=== PATIENT | female | born 2005 | race Caucasian/White ===

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

== ENCOUNTER 2024-06-01 18:30 | Emergency (ER) | payer BC, MEDICAID ==
[~2024-06-01] VITALS: Ht 172.7 cm; Wt 63.0 kg
[2024-06-01 19:06] VITALS: BP 136/75; PULSE 107; RESP 18; TEMP 97.9; O2SAT 95
[2024-06-01 19:45] LABS: Basophils # (auto) 0.1 10 ^3/uL (0-0.2); Eosinophils # (auto) 0.1 10 ^3/uL (0-0.8); Eosinophils % (auto) 1.6 % (0.0-7.0); Hemoglobin 14.7 g/dL (12.2-16.2); Lymphocytes # (auto) 2.2 10 ^3/uL (0.4-5.4); Lymphocytes % (auto) 28.3 % (10.0-50.0); Mean Corpuscular Hemoglobin 34.7 pg (28.0-32.0); Mean Corpuscular Hgb Conc. 35.1 g/dL (32.0-36.0); Mean Corpuscular Volume 98.9 fL (80.0-100.0); Monocytes # (auto) 0.6 10 ^3/uL (0-1.3); Monocytes % (auto) 7.7 % (0.0-12.0); Neutrophils # (auto) 4.8 10 ^3/uL (1.6-8.6); Neutrophils % (auto) 61.4 % (37.0-80.0); Nucleated Red Blood Cells % 0.1 %; Platelet Count (auto) 167 10^3/uL (140-450); Red Blood Cells 4.25 10^6/uL (4.0-5.20); Red Cell Distribution Width 15.1 % (11.8-14.3); White Blood Cell 7.8 10^3/uL (4.4-10.8)
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
[2024-06-01 20:09] LABS: INR 0.93 (0.9-1.15); Partial Thromboplastin Time 25.4 SEC (24.5-34.5); Prothrombin Time 9.9 sec (9.3-11.8)
[2024-06-01 20:11] LABS: Urine Bacteria None Seen /hpf (None Seen)
[2024-06-01 20:17] LABS: Anion Gap 10 (5-15); BUN/Creatinine Ratio 14.3 (10.0-20.0); Bilirubin, Total 0.4 mg/dL (0.2-1.0); Blood Urea Nitrogen 12 mg/dL (9-23); Calcium 9.5 mg/dL (8.7-10.4); Carbon Dioxide 26 mmol/L (20-31); Glucose 101 mg/dL (74-106); Potassium 4.2 mmol/L (3.5-5.1); Sodium 144 mmol/L (136-145); Total Protein 7.7 g/dL (5.7-8.2)
[2024-06-01 20:18] LABS: Alanine Aminotransferase 81 U/L (7-40); Albumin 4.9 g/dL (3.2-4.8); Alkaline Phosphatase 120 U/L (46-116); Aspartate Aminotransferase 53 U/L (13-40); Chloride 108 mmol/L (98-107)
[2024-06-01 20:28] LABS: Urine Blood 2+ /uL (Negative); Urine Clarity Clear (Clear); Urine Color Light-Yellow (Yellow); Urine Protein, UAD Negative (Negative); Urine Specific Gravity 1.008 (1.001-1.035); Urine Squamous Epithelial Cell FEW /hpf (<5); Urine Urobilinogen Normal (Negative); Urine WBC 1 /HPF (0-5)
[2024-06-03 23:06] LABS: Chlamydia Trachomatis, NAA Negative (Negative); Neisseria gonorrhoeae, NAA Negative (Negative)
== END 2024-06-01 22:22 | disposition home or self-care (01) ==
LOC: ER 18:30
DX: N92.0 Excessive and frequent menstruation with regular cycle (principal)
CPT/HCPCS: 36415; 80053; 81001; 81025; 85025; 85610; 85730

== ENCOUNTER 2024-09-02 20:00 | Inpatient (IN) | payer BC, MEDICAID ==
[~2024-09-02] VITALS: Ht 170.2 cm; Wt 65.9 kg
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
[2024-09-02 20:41] LABS: Hematocrit 42.4 % (36.0-46.0); Hemoglobin 14.9 g/dL (12.2-16.2)
[2024-09-02 20:43] LABS: Mean Corpuscular Hemoglobin 36.1 pg (28.0-32.0); Mean Corpuscular Volume 102.4 fL (80.0-100.0); Nucleated Red Blood Cells % 0.0 %
[2024-09-02 20:48] LABS: Anion Gap 12 (5-15); BUN/Creatinine Ratio 8.6 (10.0-20.0); Bilirubin, Total 0.5 mg/dL (0.2-1.0); Calcium 9.6 mg/dL (8.7-10.4); Carbon Dioxide 25 mmol/L (20-31); Chloride 102 mmol/L (98-107); Glucose 102 mg/dL (74-106); Lipase 37 U/L (12-53); Potassium 4.1 mmol/L (3.5-5.1); Sodium 139 mmol/L (136-145); Total Protein 7.9 g/dL (5.7-8.2)
[2024-09-02 21:19] LABS: Alanine Aminotransferase 95 U/L (7-40); Albumin 5.2 g/dL (3.2-4.8); Alkaline Phosphatase 136 U/L (46-116); Blood Urea Nitrogen 8 mg/dL (9-23)
--- NOTE | 2024-09-02 22:13 | DVH ---
ULTRASOUND ABDOMEN, LIMITED RIGHT UPPER QUADRANT: REASON FOR EXAM: epigastric pain TECHNIQUE: Real-time sector scans in the transverse and longitudinal planes were obtained through th e right upper quadrant of the abdomen. FINDINGS: The liver is within normal limits for size. The liver parenchyma is heterogeneous and prof oundly echogenic. There is no intrahepatic nor extrahepatic biliary ductal dilatation. The common b ile duct measures 2 mm. No gallstones or sludge are identified. There is no gallbladder wall thicke adeel nor pericholecystic fluid. There is no sonographic Servin's sign. The visualized portion of the pancreas is unremarkable. The right kidney measures 9.3 cm. No hydronephrosis or nephrolithiasis is identified. There is no e vidence of right renal mass or cyst. The visualized portions of the abdominal aorta demonstrate no evidence of aneurysmal dilatation. The visualized inferior vena cava is unremarkable. There is no free fluid identified in the right upper quadrant. IMPRESSION: Profoundly echogenic liver parenchyma. This may be secondary to steatosis or another diffuse hepatic process. Correlate clinically and with liver function tests. No gallstones identified.
[2024-09-02] MEDS: FAMOTIDINE 20 MG TAB PO ONE (22:14)
[2024-09-02] MEDS: MAALOX PLUS or MAALOX 30 ML PO ONE (22:14)
[2024-09-02] MEDS: ONDANSETRON ODT 4 MG TAB PO ONE (22:15)
[2024-09-02 23:05] LABS: Urine Protein, UAD Negative (Negative)
[2024-09-03] VITALS (8 sets, daily range): BP systolic 134–150; BP diastolic 83–113; PULSE 65–88; RESP 16–20; TEMP 97.6–98.7; O2SAT 95–98
[2024-09-03] MEDS: LORazepam 2MG/ML-1ML VIAL IV ONE (00:30)
[2024-09-03] MEDS ORDERED: ONDANSETRON HCL 4 MG/2 ML VIAL IV PRN ×2 (01:15→04:30)
[2024-09-03] MEDS ORDERED: HYDROcodone-ACET 5/325MG TAB PO PRN (01:15)
[2024-09-03] MEDS ORDERED: ACETAMINOPHEN 325 MG TAB PO PRN ×2 (01:15→04:30)
[2024-09-03] MEDS ORDERED: MORPHINE SULFATE INJ 2 MG/ml SYRG IV PRN (01:30)
[2024-09-03] MEDS: SODIUM CHLORIDE 0.9% 1,000 ML IV ONE ×2 (01:54→12:39)
--- NOTE | 2024-09-03 01:54 | DVH ---
INDICATION: HYPOGASTRIC, PELVIC PAIN RAD TO LOWER BACK TECHNIQUE: Multiple real-time grayscale transabdominal sonographic images along with color and duplex Doppler of the uterus and ovaries were obtained. COMPARISON: None FINDINGS: The uterus measures 7.1 x 4.0 x 3.5 cm. The endometrial stripe measures 0.2 cm. No significant pelvic cul-de-sac free fluid. Right ovary measures 2.5 x 2.4 x 1.9 cm with normal Doppler color flow Left ovary measures 2.8 x 2.2 x 1.7 cm with normal Doppler color flow IMPRESSION: 1. Grossly unremarkable pelvic ultrasound.
--- NOTE | 2024-09-03 02:13 | DVH ---
Exam: CT CT AB PEL WO CON-NO ORAL OR IV History: R/O appendicitis Comparison Study: None Technique: Multidetector spiral CT of the abdomen was performed from lung bases to pubic symphysis. I maging was performed without IV contrast. Axial, coronal and sagittal multiplanar reformats were obta ined from the axial data set by the technologist. Radiation Dose : 1. Abdomen/Pelvis: CTDIvol 5.85 mGy, DLP 359.91 mGy*cm. Findings: Evaluation of solid organs is limited due to lack of intravenous contrast use. Lung Bases: No acute or significant lung base finding. Normal heart size. No pleural or pericardial effusion. Liver: The liver is normal in size. Diffuse hepatic steatosis. No focal lesions. Gallbladder and Biliary Tree: Unremarkable Spleen: Unremarkable Pancreas: The pancreas is grossly normal in appearance. Adrenal Glands: Unremarkable Kidneys: Kidneys are grossly normal without calculi or hydronephrosis. Bladder: Grossly unremarkable for degree of distention. Bowel: The stomach is grossly normal in appearance. Small bowel and colon are normal in caliber and d istribution. The appendix is normal, measuring 5 mm in diameter no significant periappendiceal inflam matory change to suggest acute appendicitis.. Ascites: Absent Lymphadenopathy: No mesenteric, retroperitoneal or periportal lymphadenopathy. Abdominal Wall and Mesentery: Unremarkable. Vasculature: The visualized abdominal aorta is normal in size and caliber. Evaluation of abdominal a nd pelvic vessels is limited due to lack of intravenous contrast. Pelvic Organs: Unremarkable Musculoskeletal: No aggressive focal bony lesions, acute fractures or dislocation. IMPRESSION: 1. No acute abdominal or pelvic findings. 2. Hepatomegaly. Radiation optimization: All CT scans at this facility use at least one of these dose optimization allan hniques: automated exposure control mA and/or kV adjustment per patient size (includes targeted exam s where dose is matched to clinical indication) or iterative reconstruction.
[2024-09-03 02:15] LABS: Triglycerides 92 mg/dL (< 150)
[2024-09-03 02:17] LABS: Cholesterol 192 mg/dL (< 200)
[2024-09-03 02:20] LABS: Amphetamine Screen, Urine Neg (NEGATIVE); Barbiturate Scree,Urine Neg (NEGATIVE); Benzodiazephine Screen, Urine Neg (NEGATIVE); Cannabinoid Screen, Urine Neg (NEGATIVE); Cocaine Screen, Urine Neg (NEGATIVE); Opiate Scree,Urine Pos (NEGATIVE); Phencyclidine Screen, Urine Neg (NEGATIVE)
[2024-09-03 02:20] LABS: HDL Cholesterol 108 mg/dL (40-59)
[2024-09-03] MEDS: SODIUM CHLORIDE 0.9% 1,000 ML IVB ONE (04:01)
[2024-09-03] MEDS: HYDROcodone-ACET 5/325MG TAB PO PRN (04:35)
--- NOTE | 2024-09-03 06:00 | DVHHPRES ---
History of Present Illness Resident Creating Document: AVELINO MIR History of Present Illness This is a 19-year-old female with no significant past medical history of relevance who presented to the ED with chief complaint of hypogastric/pelvic pain. The patient reports that the pain started 2 hours ago before coming to the ED that started suddenly after getting out of the bed. The patient reports and described the pain as sharp/cramping in nature, rated as a 10/10 on the pain scale localized in the hypogastric/pelvic region radiating to the right lower back. The patient also reports associated single episode of vomit that was induced by herself after drinking some fruit juice. The patient denied fever/chills, chest pain, shortness of breath, alcohol intake or any drug use. The patient also reports a recent test that came back positive at home. Initial labs showed negative beta human chorionic gonadotropin test, CT of the abdomen and pelvis and pelvic ultrasound both came back negative. Right upper quadrant ultrasound showed severe steatosis of the liver. Upon my examination, the patient has severe tenderness at the hypogastric region that gets exacerbated with palpation but no additional concerns/complaints. We will admit the patient for further assessment and management. Past Surgical History: None Family History: None Smoke: No ALCOHOL: none Drugs: None Lives: with Family Domestic Violence: Neg Review of Systems Constitutional: No: Fever, Chills, Sweats, Weakness, Malaise, Other Eyes: No: Pain, Vision change, Conjunctivae inflammation, Eyelid inflammation, Other, Redness Respiratory: No: Cough, Dry, Shortness of breath, SOB with excertion, Wheezing, Hemoptysis, Pleuritic Pain, Sputum, Wheezing, Other Cardiovascular: No: Chest Pain, Palpitations, Orthopnea, Paroxysmal Noc. Dyspnea, Edema, Lt Headedness, Other Gastrointestinal: Nausea, Abdominal Pain; No: Vomiting, Diarrhea, Constipation, Melena, Hematochezia, Other Genitourinary: No Dysuria, No Frequency, No Incontinence, No Hematuria, No Retention, No Other Musculoskeletal: No: other, neck pain, shoulder pain, arm pain, back pain, hand pain, leg pain, foot pain Skin: No: Rash, Lesions, Jaundice, Bruising, Other Neurological: No: Weakness, Numbness, Incoordination, Change in speech, Confusion, Seizures, Other Allergies: Coded Allergies: Amoxicillin (Verified Allergy, Unknown, 09/02/24) Medications Current Medications Medications Dose Ordered Sig/Neela Route Start Time Stop Time Status Last Admin Dose Admin Acetaminophen/ Hydrocodone Bitart 1 tab Q4HP PRN PO 09/03/24 04:30 09/03/24 04:35 1 TAB Acetaminophen 650 mg Q6HP PRN PO 09/03/24 04:30 Ondansetron HCl 4 mg Q4HP PRN IV 09/03/24 04:30 Morphine Sulfate 1 mg Q6HP PRN IV 09/03/24 04:30 Exam Vital Signs Vital Signs Date Time Temp Pulse Resp B/P (MAP) Pulse Ox O2 Delivery O2 Flow Rate FiO2 09/03/24 03:54 98.3 83 16 144/83 (103) 97 98.3 09/02/24 22:10 Room Air General Appearance: Alert, Oriented X3, Cooperative, mild distress HEENT: Atraumatic, PERRLA, EOMI, Mucous membr. moist/pink Respiratory: Clear to auscultation, Normal air movement Cardiovascular: Regular rate, Normal S1, Normal S2, No murmurs Abdominal: Normal bowel sounds, Soft, Other (There is tenderness to palpation of the right upper quadrant, hypogastrium/pelvic region) Extremities: No clubbing, No cyanosis, No edema, Normal pulses, No tenderness/swelling Skin: No rashes, No breakdown, No significant lesion Neuro: Normal gait, Normal speech, Strength at 5/5 X4 ext, Normal tone, Sensation intact, Cranial nerves 3-12 NL, Reflexes 2+ Psych/Mental Status: Mental status NL, Mood NL Labs/Xrays Labs Test 09/02/24 22:12 09/02/24 20:47 09/02/24 20:17 Range/Units Urine Color Colorless Yellow Urine Clarity Clear Clear Urine pH 6.0 5.0-9.0 Urine Specific [place] 1.011 1.001-1.035 Urine Protein Negative Negative Urine Ketones Trace Negative Urine Blood Negative Negative /uL Urine Nitrite Negative Negative Urine Bilirubin Negative Negative Urine Urobilinogen Normal Negative mg/dL Urine Leukocyte Esterase Negative Negative /uL Urine RBC None seen 0 - 4 /hpf Urine Microscopic WBC 1 0-5 /HPF Urine Squamous Epithelial Cells Few <5 /hpf Urine Bacteria None seen None Seen /hpf Urine Glucose Normal Normal mg/dL Urine Test Negative Negative Hemoglobin A1c 4.6 <5.7 % A1C Triglycerides Level 92 < 150 mg/dL Cholesterol Level 192 < 200 mg/dL LDL Cholesterol 71 < 100 mg/dL HDL Cholesterol 108 H 40-59 mg/dL Beta HCG, Quantitative 0.6 L 1.5-4.2 mIU/mL White Blood Count 5.9 4.4-10.8 10^3/uL Red Blood Count 4.14 4.0-5.20 10^6/uL Hemoglobin 14.9 12.2-16.2 g/dL Hematocrit 42.4 36.0-46.0 % Mean Corpuscular Volume 102.4 H 80.0-100.0 fL Mean Corpuscular Hemoglobin 36.1 H 28.0-32.0 pg Mean Corpuscular Hemoglobin Concent 35.2 32.0-36.0 g/dL Red Cell Distribution Width 12.7 11.8-14.3 % Platelet Count 230 140-450 10^3/uL Mean Platelet Volume 7.5 6.9-10.8 fL Neutrophils (%) (Auto) 84.8 H 37.0-80.0 % Lymphocytes (%) (Auto) 9.4 L 10.0-50.0 % Monocytes (%) (Auto) 4.1 0.0-12.0 % Eosinophils (%) (Auto) 0.2 0.0-7.0 % Basophils (%) (Auto) 1.5 0.0-2.0 % Neutrophils # (Auto) 5.0 1.6-8.6 10 ^3/uL Lymphocytes # (Auto) 0.6 0.4-5.4 10 ^3/uL Monocytes # (Auto) 0.2 0-1.3 10 ^3/uL Eosinophils # (Auto) 0 0-0.8 10 ^3/uL Basophils # (Auto) 0.1 0-0.2 10 ^3/uL Nucleated Red Blood Cells 0.0 % Sodium Level 139 136-145 mmol/L Potassium Level 4.1 3.5-5.1 mmol/L Chloride Level 102 98-107 mmol/L Carbon Dioxide Level 25 20-31 mmol/L Anion Gap 12 5-15 Blood Urea Nitrogen 8 L 9-23 mg/dL Creatinine 0.93 0.550-1.02 mg/dL Glomerular Filtration Rate Calc 90 >90 mL/min BUN/Creatinine Ratio 8.6 L 10.0-20.0 Serum Glucose 102 74-106 mg/dL Calcium Level 9.6 8.7-10.4 mg/dL Total Bilirubin 0.5 0.2-1.0 mg/dL Aspartate Amino Transferase (AST) 91 H 13-40 U/L Alanine Aminotransferase (ALT) 95 H 7-40 U/L Alkaline Phosphatase 136 H 46-116 U/L Total Protein 7.9 5.7-8.2 g/dL Albumin 5.2 H 3.2-4.8 g/dL Lipase 37 12-53 U/L SEPSIS Sepsis Screen Date sepsis recognized/suspect: Sep 02, 2024 Time Sepsis recognized/suspect: 2004 Recent Procedure: No On Antibiotic Therapy: No Respiratory Rate >20: No Heart Rate >90: No Temp<36 C (96.8 F) or >38.3 C: No SBP <90 or MAP <65 mmHG: No New Acute Mental Status Change: No Is the patient on CPAP, BIPAP,: No Physician Orders Admit (09/03/24 01:13) Code Status (09/03/24 01:13) Vital Signs .PER UNIT PROTOCOL (09/03/24 01:13) Review Orders With Adm.Md (09/03/24 01:13) Encourage Activity As Tolerate (09/03/24 01:13) Notify Md Of Changes From Base (09/03/24 01:13) Advance Directive (09/03/24 01:13) Patient Condition (09/03/24 01:13) Allergies (09/03/24 01:13) Acute Hepatitis Panel (09/03/24 01:17) Pelvic (09/03/24 01:17) Chlamydia/Gc Amplification (09/03/24 01:21) Sodium Chloride 0.9% (09/03/24 01:30) Ct Ab Pel Wo Con-No Oral Or Iv (09/03/24 01:36) Hydrocodone-Acet 5/325mg Tab ([place] 5/32 (09/03/24 04:30) Acetaminophen Tablet (Tylenol Tablet) (09/03/24 04:30) Ondansetron Hcl (Zofran) (09/03/24 04:30) Morphine Sulfate Injection (09/03/24 04:30) Full Liq Diet (09/03/24 Breakfast) Ceftriaxone 1gm/50ml D5w (Rocephin) (09/03/24 05:45) Vital Signs Date Time Temp Pulse Resp B/P (MAP) Pulse Ox O2 Delivery O2 Flow Rate FiO2 09/03/24 03:54 98.3 83 16 144/83 (103) 97 98.3 09/02/24 22:10 98.7 90 16 145/90 (108) 96 98.7 09/02/24 22:10 90 16 96 Room Air 09/02/24 22:10 98.7 90 16 145/90 (108) 96 98.7 Laboratory Tests Test 09/02/24 20:17 White Blood Count 5.9 10^3/uL (4.4-10.8) Medications Medications Dose Ordered Sig/Neela Route Start Time Stop Time Status Last Admin Dose Admin Acetaminophen/ Hydrocodone Bitart 1 tab Q4HP PRN PO 09/03/24 04:30 09/03/24 04:35 1 TAB Al Hydrox/Mg Hydrox/Simethicone 30 ml ONCE ONCE PO 09/02/24 20:15 09/02/24 20:16 DC 09/02/24 22:14 30 ML Famotidine 20 mg ONCE ONCE PO 09/02/24 20:15 09/02/24 20:16 DC 09/02/24 22:14 20 MG Ondansetron HCl 4 mg ONCE ONCE PO 09/02/24 20:15 09/02/24 20:16 DC 09/02/24 22:15 4 MG Sodium Chloride 1,000 ml @ 1,000 mls/hr Q1H ONCE IVB 09/03/24 00:30 09/03/24 01:29 DC 09/03/24 04:01 1,000 MLS/HR Assessment/Plan Assessment/Plan Assessment/plan Acute hypogastric/pelvic pain, R/O ectopic R/O ovarian torsion Ruled out acute pancreatitis Ruled out acute appendicitis Acute transaminitis Possible gastroenteritis -pelvic ultrasound showed no abnormalities -CT scan of the abdomen and pelvis was grossly unremarkable -right upper quadrant ultrasound showed no evidence of cholecystitis but did showed echogenicities in the liver compatible with hepatic steatosis -ordered acute hepatitis panel -beta human chorionic gonadotropin quantitative test came back low (negative) -gave one dose of IV ceftriaxone -ordered chlamydia/gonorrhea test -full liquid diet -IV fluids NS 0.9% at 100cc/hr -Pain medication Goals of care discussed with the patient at bedside for >35min, FULL CODE Plan discussed with Dr. Adams Plan discussed with: Patient My Orders Orders - AVELINO MIR Procedure Category Date Status Time Admit ADMIT 09/03/24 Transmitted 01:13 Code Status CODE 09/03/24 Transmitted 01:13 Vital Signs [facility] 09/03/24 In Process 01:13 Review Orders With [facility] 09/03/24 In Process Adm.Md 01:13 Encourage Activity As JUAN DANIEL 09/03/24 In Process Tolerate 01:13 Notify Md Of Changes [facility] 09/03/24 In Process From Base 01:13 Advance Directive [facility] 09/03/24 In Process 01:13 Patient Condition ORDERS 09/03/24 Transmitted 01:13 Allergies JUAN DANIEL 09/03/24 In Process 01:13 Acute Hepatitis Panel LAB 09/03/24 In Process 01:17 Pelvic US 09/03/24 Resulted 01:17 Chlamydia/Gc LAB 09/03/24 In Process Amplification 01:21 Sodium Chloride 0.9% PHA 09/03/24 In Process 01:30 Ct Ab Pel Wo Con-No CT 09/03/24 Resulted Oral Or Iv 01:36 Hydrocodone-Acet PHA 09/03/24 In Process 5/325mg Tab ([place] 04:30 Acetaminophen Tablet PHA 09/03/24 In Process (Tylenol Tablet) 04:30 Ondansetron Hcl PHA 09/03/24 In Process (Zofran) 04:30 Morphine Sulfate PHA 09/03/24 In Process Injection 04:30 Full Liq Diet DIET 09/03/24 Transmitted Breakfast Ceftriaxone 1gm/50ml PHA 09/03/24 In Process D5w (Rocephin) 05:45 Date of Service: Sep 03, 2024 Billing Provider: CLINT ADAMS MD Common Visit Codes: 97752-[id number] INP/OBS CARE (HIGH) Secondary Visit Codes: 92184-[id number] CARE PLAN 30 MINUTES AVELINO MIR Sep 03, 2024 06:00
[2024-09-03] MEDS: cefTRIAXone 1GM/50ML D5W 50 ML IV ONE (06:17)
[2024-09-03] MEDS: MORPHINE SULFATE INJ 2 MG/ml SYRG IV PRN (09:10)
[2024-09-03 10:58] LABS: Hematocrit 39.8 % (36.0-46.0); Hemoglobin 13.9 g/dL (12.2-16.2); Mean Corpuscular Hemoglobin 35.9 pg (28.0-32.0); Mean Corpuscular Volume 103.2 fL (80.0-100.0); Nucleated Red Blood Cells % 0.0 %
[2024-09-03 11:01] LABS: Alkaline Phosphatase 108 U/L (46-116); Calcium 9.4 mg/dL (8.7-10.4); Carbon Dioxide 25 mmol/L (20-31); Chloride 103 mmol/L (98-107); Glucose 78 mg/dL (74-106); Potassium 3.7 mmol/L (3.5-5.1)
[2024-09-03 11:02] LABS: Albumin 4.5 g/dL (3.2-4.8); Anion Gap 10 (5-15); BUN/Creatinine Ratio 12.5 (10.0-20.0); Bilirubin, Total 0.8 mg/dL (0.2-1.0); Magnesium 1.9 mg/dL (1.6-2.6); Sodium 138 mmol/L (136-145); Total Protein 7.1 g/dL (5.7-8.2)
[2024-09-03 11:05] LABS: Alanine Aminotransferase 79 U/L (7-40); Blood Urea Nitrogen 9 mg/dL (9-23)
[2024-09-03 11:15] LABS: INR 1.07 (0.9-1.15); Partial Thromboplastin Time 28.8 SEC (24.5-34.5); Prothrombin Time 11.3 sec (9.3-11.8)
[2024-09-03] MEDS: BISACODYL 5 MG EC TAB PO ONE (12:40)
[2024-09-03] MEDS: PANTOPRAZOLE 40 MG/10 ML VIAL INJ IV ONE (12:40)
[2024-09-03] MEDS: LACTULOSE 20Gm/30ML SOLN PO ONE (12:40)
[2024-09-03] MEDS: FOLIC ACID 1 MG TAB PO ONE (12:46)
[2024-09-03] MEDS: THIAMINE HCL 100 MG TAB PO ONE (12:46)
[2024-09-03] MEDS: MULTIPLE VITAMIN TAB PO ONE (12:46)
[2024-09-03] MEDS: LORazepam 0.5 MG TAB PO PRN (12:47)
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
[2024-09-04] VITALS (7 sets, daily range): BP systolic 130–154; BP diastolic 93–109; PULSE 67–89; RESP 16–20; TEMP 97.6–98.2; O2SAT 97–98
[2024-09-04 07:15] LABS: Nucleated Red Blood Cells % 0.1 %
[2024-09-04 07:17] LABS: Hematocrit 42.4 % (36.0-46.0); Hemoglobin 14.9 g/dL (12.2-16.2); Mean Corpuscular Hemoglobin 36.5 pg (28.0-32.0); Mean Corpuscular Volume 103.7 fL (80.0-100.0)
[2024-09-04 07:29] LABS: Albumin 4.5 g/dL (3.2-4.8); Alkaline Phosphatase 86 U/L (46-116); Anion Gap 12 (5-15); BUN/Creatinine Ratio 7.6 (10.0-20.0); Calcium 9.8 mg/dL (8.7-10.4); Carbon Dioxide 24 mmol/L (20-31); Chloride 102 mmol/L (98-107); Potassium 3.6 mmol/L (3.5-5.1); Sodium 138 mmol/L (136-145); Total Protein 7.0 g/dL (5.7-8.2)
[2024-09-04 07:30] LABS: Bilirubin, Total 0.8 mg/dL (0.2-1.0)
[2024-09-04 07:31] LABS: Alanine Aminotransferase 71 U/L (7-40); Blood Urea Nitrogen 5 mg/dL (9-23); Glucose 64 mg/dL (74-106)
[2024-09-04] MEDS: FOLIC ACID 1 MG TAB PO SCH (09:12)
[2024-09-04] MEDS: MULTIPLE VITAMIN TAB PO SCH (09:12)
[2024-09-04] MEDS: PANTOPRAZOLE 40 MG/10 ML VIAL INJ IV SCH (09:12)
[2024-09-04] MEDS: THIAMINE HCL 100 MG TAB PO SCH (09:12)
[2024-09-04 10:07] LABS: Hepatitis B Surface Antigen Negative (Negative)
[2024-09-04 10:27] LABS: Hepatitis C Antibody Negative (Negative)
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
[2024-09-04] MEDS ORDERED: SUCR1TAB PO (17:33)
[2024-09-04] MEDS ORDERED: PANT40T PO (17:33)
[2024-09-06 04:06] LABS: Chlamydia Trachomatis, NAA Negative (Negative); Neisseria gonorrhoeae, NAA Negative (Negative)
== END 2024-09-04 18:13 | disposition home or self-care (01) | DRG 392 ==
LOC: EDBD 20:00 → ER 20:00 → EDUNIT# 20:00 → OVERFLOW 09-03 01:13 → UNDODISIN 09-03 02:50 → WEST WING 09-03 05:14
PROVIDERS: ADMIT Student in an Organized Health Care Education/Training Program; ATTEND Emergency Medicine
DX: K29.20 Alcoholic gastritis without bleeding (principal); F10.139 Alcohol abuse with withdrawal, unspecified; K70.30 Alcoholic cirrhosis of liver without ascites; K76.0 Fatty (change of) liver, not elsewhere classified; K70.10 Alcoholic hepatitis without ascites; F10.129 Alcohol abuse with intoxication, unspecified; F41.9 Anxiety disorder, unspecified; R74.01 Elevation of levels of liver transaminase levels; E86.0 Dehydration; K59.00 Constipation, unspecified; Z91.51 Personal history of suicidal behavior; Z88.1 Allergy status to other antibiotic agents; Y90.9 Presence of alcohol in blood, level not specified
CPT/HCPCS: 36415; 74176; 76705; 76856; 80053; 80061; 80074; 80307; 80320; 81001; 81025; 83036; 83690; 83735; 84702; 85025; 85610; 85730; 96361; 96365; 99291; G0378; J2470; Q0162